=== PATIENT | male | born 1995 ===

== ENCOUNTER → 2018-06-21 | Outpatient (REF) | payer OTHER ==
[2018-06-21 12:51] LABS: SEMEN APPEARANCE OPAQUE (OPAQUE); SEMEN VISCOSITY LIQUID (LIQUID); SEMEN VOLUME 6.4 ml (4.0-5.0); SEMEN pH 8.5 (7.0-8.0); SPERM CONCENTRATION 5.5 M/ml (>=15.0); WBC CONCENTRATION >1 M/ml (<=1 M/ml)
[2018-06-21 12:52] LABS: % NORMAL FORMS < 4 % (>=4); IMMOTILITY 80 %; NON PROGRESSIVE MOTILITY (c) 17 %; PROGRESSIVE MOTILITY (a) 3 % (>=32); SPERM# 34.9 M/Ejac (>=39); TOTAL FUNCTIONAL 0 M/Ejac.; TOTAL MOTILITY 20 % (>=40); TOTAL PROGRESSIVE SPERM 0.9 M/Ejac.
== END ==
LOC: M LAB REF 12:01
DX: N46.8 Other male infertility (principal)

== ENCOUNTER → 2018-09-16 | Outpatient (REF) | payer OTHER ==
[2018-09-16 14:19] LABS: SEMEN APPEARANCE OPAQUE (OPAQUE); SEMEN VISCOSITY LIQUID (LIQUID); SEMEN VOLUME 7.3 ml (4.0-5.0)
[2018-09-16 14:20] LABS: SPERM CONCENTRATION 16.2 M/ml (>=15.0); WBC CONCENTRATION >1 M/ml (<=1 M/ml)
== END ==
LOC: M LAB REF 14:14
PROVIDERS: ATTEND Obstetrics & Gynecology
DX: N46.8 Other male infertility (principal)